=== PATIENT | male | born 1980 | race Caucasian/White ===

== ENCOUNTER 2017-04-12 17:21 | Emergency (ER) | payer SELFPAY ==
[~2017-04-12] VITALS: Ht 172.7 cm; Wt 83.0 kg
[~2017-04-12 17:21] MED LIST: OXYC-360 PO; PHEN12.5 PO; Z.0.NO CURRENT MEDS
[2017-04-12 17:36] VITALS: BP 138/76; PULSE 45; RESP 18; TEMP 98.3; O2SAT 100
[2017-04-12 18:22] LABS: BLOOD, URINE LARGE (NEG); GLUCOSE,URINE NEG (NEG); KETONE, URINE NEG (NEG); NITRITE,URINE NEG (NEG)
[2017-04-12 18:28] LABS: SQUAMOUS EPITHELIAL CELL URINE 0-5 /hpf (0-5); URINE COLOR YELLOW (YELLW/STRAW)
[2017-04-12 18:29] LABS: COMMENT (UR) CULT NOT INDICATED; CULTURE IF INDICATED CULT NOT INDICATED
--- NOTE | 2017-04-12 19:05 | PD ---
HPI Chief Complaint: Flank/Kidney Pain Time Seen by Provider: 18:57 Travel History International Travel<30 days: No Contact w/Intl Traveler<30days: No Traveled to known affect area: No History of Present Illness HPI This 37-year-old male says he is having left-sided flank pain since this morning. Pain has been fairly persistent. He had a stone on his right side in December 2008. He has not had any stones since then. Pain is quite severe. He has vomited 3 times. He is generally healthy. He is on no medications there is no history of trauma PFSH Past Medical History Diminished Hearing: No Kidney Stones: Yes Influenza Vaccination: No Past Surgical History Abdominal Surgery: Yes (HERNIA) Tonsillectomy: Yes Other Surgery: Yes (INGUINAL HERNIA REPAIR AGE 2 ) Social History Alcohol Use: No Tobacco Use: No Substance Use: Yes (MARIJUANA) Allergies-Medications (Allergen,Severity, Reaction): Coded Allergies: No Known Allergies (Verified , 04/12/17) Reported Meds & Prescriptions Reported Meds & Active Scripts Active No Active Prescriptions or Reported Medications Review of Systems General / Constitutional: No: Fever, Chills Eyes: No: Diploplia, Blurred Vision HENT: No: Headaches, Vertigo Cardiovascular: No: Chest Pain or Discomfort Respiratory: No: Cough, Shortness of Breath Gastrointestinal: Positive: Nausea, Vomiting Genitourinary: Positive: Flank Pain Musculoskeletal: No: Myalgias, Arthralgias Skin: No Rash Neurologic: No: Weakness Endocrine: No: Heat Intolerance Physical Exam Narrative GENERAL: Well-developed male in moderate distress due to pain SKIN: Focused skin assessment warm/dry. HEAD: Atraumatic. Normocephalic. EYES: Pupils equal and round. No scleral icterus. No injection or drainage. ENT: No nasal bleeding or discharge. Mucous membranes pink and moist. NECK: Trachea midline. No JVD. CARDIOVASCULAR: Regular rate and rhythm. No murmur appreciated. RESPIRATORY: No accessory muscle use. Clear to auscultation. Breath sounds equal bilaterally. GASTROINTESTINAL: Abdomen soft, non-tender, nondistended. Hepatic and splenic margins not palpable. There is some left CVA tenderness MUSCULOSKELETAL: No obvious deformities. No clubbing. No cyanosis. No edema. NEUROLOGICAL: Awake and alert. No obvious cranial nerve deficits. Motor grossly within normal limits. Normal speech. PSYCHIATRIC: Appropriate mood and affect; insight and judgment normal. Data Data Last Documented VS Vital Signs Date Time Temp Pulse Resp B/P Pulse Ox O2 Delivery O2 Flow Rate FiO2 04/12/17 20:09 73 20 128/77 100 04/12/17 17:36 98.3 Orders Urinalysis - C+S If Indicated (04/12/17 18:07) Basic Metabolic Panel (Bmp) (04/12/17 19:03) Complete Blood Count With Diff (04/12/17 19:03) Ct Abd/Pel W/O Iv Contrast (04/12/17 19:03) Ketorolac Inj (Toradol Inj) (04/12/17 19:15) Ondansetron Inj (Zofran Inj) (04/12/17 19:15) Sodium Chloride 0.9% Flush (Ns Flush) (04/12/17 19:15) Hydromorphone Pf Inj (Dilaudid Pf Inj) (04/12/17 19:15) Sodium Chlor 0.9% 1000 Ml Inj (Ns 1000 M (04/12/17 19:15) Labs Laboratory Tests Test 04/12/17 04/12/17 18:10 19:00 Urine Color YELLOW Urine Turbidity CLOUDY Urine pH 7.0 Urine Specific [place] 1.020 Urine Protein NEG mg/dL Urine Glucose (UA) NEG mg/dL Urine Ketones NEG mg/dL Urine Occult Blood LARGE Urine Nitrite NEG Urine Bilirubin NEG Urine Leukocyte Esterase NEG Urine RBC 20-24 /hpf Urine WBC 3-5 /hpf Urine Squamous Epithelial 0-5 /hpf Cells Urine Amorphous Sediment MOD Microscopic Urinalysis Comment CULT NOT INDICATED White Blood Count 12.7 TH/MM3 Red Blood Count 4.98 MIL/MM3 Hemoglobin 14.1 GM/DL Hematocrit 41.4 % Mean Corpuscular Volume 83.2 FL Mean Corpuscular Hemoglobin 28.2 PG Mean Corpuscular Hemoglobin 33.9 % Concent Red Cell Distribution Width 12.7 % Platelet Count 305 TH/MM3 Mean Platelet Volume 7.7 FL Neutrophils (%) (Auto) 82.5 % Lymphocytes (%) (Auto) 12.3 % Monocytes (%) (Auto) 4.8 % Eosinophils (%) (Auto) 0.2 % Basophils (%) (Auto) 0.2 % Neutrophils # (Auto) 10.5 TH/MM3 Lymphocytes # (Auto) 1.6 TH/MM3 Monocytes # (Auto) 0.6 TH/MM3 Eosinophils # (Auto) 0.0 TH/MM3 Basophils # (Auto) 0.0 TH/MM3 CBC Comment DIFF FINAL Differential Comment Sodium Level 142 MEQ/L Potassium Level 4.1 MEQ/L Chloride Level 109 MEQ/L Carbon Dioxide Level 24.1 MEQ/L Anion Gap 9 MEQ/L Blood Urea Nitrogen 15 MG/DL Creatinine 1.20 MG/DL Estimat Glomerular Filtration 68 ML/MIN Rate Random Glucose 125 MG/DL Calcium Level 9.2 MG/DL [facility] Medical Decision Making Medical Screen Exam Complete: Yes Emergency Medical Condition: Yes Medical Record Reviewed: Yes Differential Diagnosis Differential includes renal colic, UTI, Narrative Course CT scan shows a 4 mm left UVJ stone with mild hydronephrosis and hydroureter. There are small bilateral renal calculi. Pain was well-controlled with a milligram of Dilaudid and some fluids. He'll be released with prescription for Percocet Diagnosis Primary Impression: Renal colic on left side Scripts Oxycodone-Acetaminophen (Percocet)10-325 mg Tab1 Tab PO Q4H PRN (PAIN) #30 TAB Ref 0 Prov:Jamal Sarabia MD 04/12/17 Ondansetron Odt (Zofran Odt)4 Mg Tab4 Mg SL Q8HR PRN (Nausea/Vomiting) #10 TAB Ref 0 Prov:Jamal Sarabia MD 04/12/17 Disposition: 01 DISCHARGE HOME Condition: Stable Jamal Sarabia MD Apr 12, 2017 19:05
[2017-04-12] MEDS ORDERED: HYDROmorphone HCL PF 1 MG/ML VIAL IVS ONE (19:15)
[2017-04-12] MEDS ORDERED: KETOROLAC TROMETHAMINE 30 MG/ML (IVP) VIAL IVP ONE (19:15)
[2017-04-12] MEDS ORDERED: SODIUM CHLOR 0.9% 1000 ML INJ 1,000 ML IV ONE (19:15)
[2017-04-12] MEDS ORDERED: SODIUM CHLORIDE 0.9% FLUSH 10 ML FLUSH IVF PRN (19:15)
[2017-04-12] MEDS ORDERED: ONDANSETRON HCL 4 MG/2 ML VIAL IVP ONE (19:15)
[2017-04-12 19:28] LABS: AUTOMATED NEUTROPHIL # 10.5 TH/MM3 (1.8-7.7); BASOPHIL % 0.2 % (0.0-2.0); EOSINOPHIL % 0.2 % (0.0-4.0); HEMATOCRIT 41.4 % (39.0-51.0); HEMO FLAGS DIFF FINAL; LYMPH % 12.3 % (9.0-44.0); LYMPHOCYTE # 1.6 TH/MM3 (1.0-4.8); MEAN CELL VOLUME 83.2 FL (80.0-100.0); MEAN CORPUSCULAR HEMOGLOBIN 28.2 PG (27.0-34.0); MEAN CORPUSCULAR HGB CONC 33.9 % (32.0-36.0); MONO % 4.8 % (0.0-8.0); NEUT % 82.5 % (16.0-70.0); PLATELET COUNT 305 TH/MM3 (150-450); RED BLOOD COUNT 4.98 MIL/MM3 (4.50-5.90); RED CELL DISTRIBUTION WIDTH 12.7 % (11.6-17.2); WHITE BLOOD COUNT 12.7 TH/MM3 (4.0-11.0)
[2017-04-12 19:34] LABS: POTASSIUM 4.1 MEQ/L (3.5-5.1)
[2017-04-12 19:35] VITALS: BP 149/81; PULSE 53; RESP 20; O2SAT 98
[2017-04-12 19:37] LABS: BICARBONATE 24.1 MEQ/L (21.0-32.0)
--- NOTE | 2017-04-12 20:00 | RADRPT ---
EXAM DATE/TIME: 04/12/2017 19:25 [place] COMPARISON: No previous studies available for comparison. INDICATIONS : Left flank pain. ORAL CONTRAST: No oral contrast ingested. RADIATION DOSE: 14.14 CTDIvol (mGy) MEDICAL HISTORY : Hernia, inguinal. SURGICAL HISTORY : Inguinal hernia repair. ENCOUNTER: Initial ACUITY: 2 days PAIN SCALE: 10/10 LOCATION: Left flank TECHNIQUE: Volumetric scanning of the abdomen and pelvis was performed. Using automated exposure control and ad justment of the mA and/or kV according to patient size, radiation dose was kept as low as reasonably achievable to obtain optimal diagnostic quality images. DICOM format image data is available electro nically for review and comparison. FINDINGS: LOWER LUNGS: The visualized lower lungs are clear. LIVER: Homogeneous density without lesion. There is no dilation of the biliary tree. No calcified gallston es. SPLEEN: Normal size without lesion. PANCREAS: Within normal limits. KIDNEYS: Multiple bilateral renal calculi are seen measuring between 2 and 4 mm. There is a 4 mm left ureterov esical junction stone with resulting mild hydronephrosis and hydroureter. No hydronephrosis or hydrou reter on the right. No perinephric stranding or fluid collections. ADRENAL GLANDS: Within normal limits. VASCULAR: There is no aortic aneurysm. BOWEL/MESENTERY: The stomach, small bowel, and colon demonstrate no acute abnormality. There is no free intraperitone al air or fluid. ABDOMINAL WALL: Within normal limits. RETROPERITONEUM: There is no lymphadenopathy. BLADDER: No wall thickening or mass. REPRODUCTIVE: Within normal limits. INGUINAL: There is no lymphadenopathy or hernia. MUSCULOSKELETAL: Within normal limits for patient age. CONCLUSION: 4 mm left UVJ stone with mild hydronephrosis and hydroureter. Small multiple bilateral renal calculi observed. Crow King Jr., MD on April 12, 2017 at 19:55 Board Certified Radiologist. This report was verified electronically.
[2017-04-12 20:09] VITALS: BP 128/77; PULSE 73; RESP 20; O2SAT 100
[2017-04-12] MEDS ORDERED: ZOFR4TAB3 SL (20:15)
[2017-04-12] MEDS ORDERED: PERC10TA27 PO (20:15)
[2017-04-12 20:27] VITALS: RESP 18
== END 2017-04-12 20:29 | disposition home or self-care (01) ==
LOC: PHED 17:21
DX: N13.2 Hydronephrosis with renal and ureteral calculous obstruction (principal); F12.90 Cannabis use, unspecified, uncomplicated
CPT/HCPCS: 74176; 80048; 81001; 85025; 96361; 96374; 96375; 99285; J1170; J1885; J2405; J7030